=== PATIENT | male | born 1970 | race Caucasian/White ===

== ENCOUNTER 2023-12-19 19:54 | Emergency (ER) | payer OTHER ==
[~2023-12-19] VITALS: Ht 170.2 cm; Wt 86.2 kg
[2023-12-19] MEDS ORDERED: KETOROLAC TROMETHAMINE INJ 30 MG/ML VIAL ONE (21:07)
[2023-12-19] MEDS: KETOROLAC TROMETHAMINE INJ 30 MG/ML VIAL IM ONE (21:12)
[2023-12-19 22:52] VITALS: BP 140/97; TEMP 98.3; O2SAT 99
== END 2023-12-19 22:53 | disposition home or self-care (01) ==
LOC: ER 20:13
DX: M51.36 Other intervertebral disc degeneration, lumbar region (principal)
CPT/HCPCS: 99285; 72131; 96372; J1885